=== PATIENT | female | born 1980 | race Two or more races ===

== ENCOUNTER 2024-03-22 13:20 | Emergency (ER) | payer MEDICAID, SELFPAY ==
[2024-03-22 13:41] VITALS: BP 139/97; PULSE 69; RESP 18; TEMP 36.8; O2SAT 96; BMI 30.3
--- NOTE | 2024-03-22 13:47 | XR_ITS ---
Examination: CT brain head without contrast. 2-D sagittal coronal reconstructions Date and time of exam:March 22, 2024 1503 hrs. Indications: Onset dizziness headache nausea vomiting beginning 3 days ago, right-sided headache episodes June 03, 2017 CTDI: vol (mGy):48.7 DLP: (mGycm):959 Technique: Multiple CT axial sections of the brain have been obtained, 5 mm slice thickness. Contrast has not been administered. 2-D sagittal, coronal reconstructions have been obtained Low dose protocols were performed. One or more of the following dose reduction techniques were used; automated exposure control, adjustment of the mA and/or KV according to patient size, use of iterative reconstruction technique. Findings: No significant ventricular enlargement. Intra-axial or extra-axial hemorrhage density is not seen. No mass effect or midline shift Basal cisterns are not remarkable. Fourth ventricle is midline. Cranial vault intact. Impression: Negative for acute hemorrhage, mass effect or midline shift
--- NOTE | 2024-03-22 13:47 | XR_ITS ---
Examination: PA lateral chest 2 views Technique: Upright PA lateral chest 2 views Exam date and time: March 22, 2024 at 1438 hrs. Indications: Shortness of breath beginning 2 days ago. Findings: Normal heart size Lungs are clear. The osseous structures are intact Impression: No active disease
--- NOTE | 2024-03-22 13:47 | PD.EDRME ---
Rapid Medical Screening Exam RME Arrival date/time: 03/22/24 13:20 43-year-old female presents emergency department complaints of dizziness and headache Chief Complaint: Headache Time Seen by Provider: 03/22/24 13:30 Vital signs: Vital Signs Temperature 98.3 F 03/22/24 13:41 Pulse Rate 69 03/22/24 13:41 Respiratory Rate 18 03/22/24 13:41 Blood Pressure 139/97 H 03/22/24 13:41 Pulse Oximetry (%) 96 03/22/24 13:41 Oxygen Delivery Method Room Air 03/22/24 13:41
[2024-03-22 14:31] LABS: Basophils % (Auto) 0 % (0-2.5); Eosinophils # (Auto) 0.1 Thou/mm3 (0.0-0.5); Eosinophils % (Auto) 2 % (0-10); Hematocrit 37.8 % (36.0-46.0); Hemoglobin 12.7 g/dL (12.0-16.0); Immature Granulocytes % (Auto) 0 % (0-0); Immature Granulocytes Auto 0.03 Thou/mm3 (0.00-0.00); Lymphocytes # (Auto) 2.5 Thou/mm3 (1.0-4.8); Lymphocytes % (Auto) 26 % (10-50); Mean Corpuscular HGB Conc 33.6 g/dl (31.0-37.0); Mean Corpuscular Hemoglobin 28.4 pg (25.0-35.0); Mean Corpuscular Volume 85 fL (80-100); Monocytes # (Auto) 0.5 Thou/mm3 (0.0-0.8); Monocytes % (Auto) 6 % (0-12); Neutrophils # (Auto) 6.3 Thou/mm3 (1.8-7.7); Neutrophils % (Auto) 66 % (37-80); Nucleated Red Blood Cell % 0 /100 WBC (0); Platelet Count 421 Thou/mm3 (140-440); RDW Standard Deviation 43.1 fL (36.4-46.3); Red Blood Count 4.47 Miln/mm3 (4.00-5.20); White Blood Count 9.5 Thou/mm3 (3.6-11.0)
[2024-03-22 14:46] LABS: HCG,Qualitative Serum Negative
[2024-03-22 14:47] LABS: Alanine Aminotransferase 26 U/L (10-49); Albumin, Serum 4.6 gm/dL (3.5-5.0); Albumin/Globulin Ratio 1.9 (1.2-2.2); Alkaline Phosphatase 80 U/L (46-116); Anion Gap 3 (7-16); Aspartate Amino Transferase 17 U/L (0-34); BUN/Creatinine Ratio 10 Ratio (12-20); Bilirubin,Total 0.3 mg/dL (0.3-1.2); Blood Urea Nitrogen 8 mg/dL (9-23); Carbon Dioxide 28.9 mMol/L (20.0-31.0); Chloride 105 mMol/L (98-107); Creatinine (Component) 0.8 mg/dL (0.6-1.3); Estimated Creatinine Clearance 91.9 mL/min (>60); Globulin 2.4 gm/dL (2.3-3.5); Glucose 115 mg/dL (74-106); Osmolality,Calculated 273 (275-295); Sodium 137 mMol/L (136-145); Troponin I < 0.020 ng/mL (0.0-0.045); eGFR > 60 See Note
[2024-03-22 17:06] VITALS: BP 137/86; PULSE 64; RESP 16; TEMP 36.8; O2SAT 100
--- NOTE | 2024-03-22 18:04 | PD.EDHA ---
ED Headache RME/HPI General Chief Complaint: Headache Stated Complaint: feeling like something hot leaking inside of me Time Seen by Provider: 03/22/24 13:30 Arrival date/time: 03/22/24 13:20 This is a 43-year-old female that comes in with complaints of headache and dizziness that started prior to arrival. Patient was seen at the clinic with primary doctor and was given a cocktail for her headache. Patient states that she did not feel better right away when they gave her the injection and felt like she had more head pressure after the injection. Patient felt that she got sick so she decided to come to the emergency room. Patient no longer complains of pain. Patient patient reports that she has had a lot of anxiety recently RME / HPI RME / HPI Narrative: 03/22/24 13:20 43-year-old female presents emergency department complaints of dizziness and headache Related Data Home Medications ?Medication ?Instructions ?Recorded ?Confirmed Vitamin * 1 tab PO QDAY #0 tabs 06/08/16 omeprazole 40 mg capsule,delayed 40 mg PO QDAY ##0 06/08/16 release Previous Rx's ?Medication ?Instructions ?Recorded tramadol 50 mg tablet (Ultram) 50 mg PO TID PRN ABDOMINAL PAIN 02/04/17 #14 tabs Allergies Allergy/AdvReac Type Severity Reaction Status Date / Time hydrocodone [From [place]] Allergy Vomiting Verified 02/11/21 13:32 Review of Systems Review of Systems Systems Reviewed: All systems reviewed, normal except as documented Past Medical History Social History SMOKING STATUS: Never smoker Travel History EBOLA RISK: No ED Exam General General appearance: Present alert and in no apparent distress Head Head exam: Present atraumatic Eye Eye exam: Present normal appearance, PERRL and EOMI ENT ENT exam: Present normal exam, normal oropharynx and mucous membranes moist Neck Neck exam: Present normal inspection, full ROM and trachea midline Chest Chest inspection: Present normal inspection and symmetric chest wall rise Respiratory Respiratory exam: Present normal lung sounds bilaterally Cardiovascular Cardiovascular exam: Present regular rate, normal rhythm and normal heart sounds Abdominal Exam Abdominal exam: Present soft Extremities Exam Extremities exam: Present normal inspection and full ROM Back Exam Back exam: Present normal inspection and full ROM Neurological Exam Neurological exam: Present alert, oriented X3 and CN II-XII intact Psychiatric Psychiatric exam: Present normal affect and normal mood Skin Skin exam: Present warm, dry, intact and normal color Course Quality Measures none Orders Category Date Time Status EKG (ED ONLY) *Do not use* NOW Care 03/22/24 13:[address] head/brain wo con Stat Exams 03/22/24 13:47 Completed EKG (ED Only) Stat Exams 03/22/24 13:47 Ordered XR chest 2V Stat Exams 03/22/24 13:47 Completed CBC Stat Lab 03/22/24 14:05 Completed Comprehensive Metabolic Panel Stat Lab 03/22/24 14:05 Completed HCG,Qualitative Serum Stat Lab 03/22/24 14:05 Completed Troponin I Stat Lab 03/22/24 14:05 Completed Vital Signs Vital signs: Vital Signs Temperature 98.3 F 03/22/24 13:41 Pulse Rate 69 03/22/24 13:41 Respiratory Rate 18 03/22/24 13:41 Blood Pressure 139/97 H 03/22/24 13:41 Pulse Oximetry (%) 96 03/22/24 13:41 Oxygen Delivery Method Room Air 03/22/24 13:41 Procedures -ED EKG Interpretation #1: Date of EK03/22/24 Time of EK:54 Rate: 60 Interpretation: Interpreted by me (sinus rhythm ) EKG Impression: No ectopy, Normal QRS and Normal intervals Headache MDM Narrative MDM Narrative:: This is a 43-year-old female that comes in with complaints of headache and dizziness that started prior to arrival. Patient was seen at the clinic with primary doctor and was given a cocktail for her headache. Patient states that she did not feel better right away when they gave her the injection and felt like she had more head pressure after the injection. Patient felt that she got sick so she decided to come to the emergency room. Patient no longer complains of pain. Patient patient reports that she has had a lot of anxiety recently chest x ray: Findings: Normal heart size Lungs are clear. The osseous structures are intact Impression: No active disease ct head: Findings: No significant ventricular enlargement. Intra-axial or extra-axial hemorrhage density is not seen. No mass effect or midline shift Basal cisterns are not remarkable. Fourth ventricle is midline. Cranial vault intact. Impression: Negative for acute hemorrhage, mass effect or midline shift Patient labs look unremarkable. Pt feels better. Pt thinks she felt sick initially after injection but now feels better. Pt feels comfortable going home. Patient data External records reviewed:: [facility] previous records Clinical information provided by:: patient Social determinants that could affect healthcare access:: none Patient has the following chronic illnesses:: none How is presenting disease/condition affected by chronic disease/condition?: no chronic disease Evaluation data The following diagnostics were reviewed and interpreted by me:: lab results, radiology exam(s) and EKG tracing(s) Lab and/or radiology exams considered but not ordered:: none Interpretation Summary: see note Medications / Prescriptions Medications or Prescriptions considered but not ordered:: none Medication administrations:: none Consultations Consultation(s) initiated? (list below): No Diagnosis Differential diagnosis headache: migraine, tension headache, subarachnoid hemorrhage, headache and other (anxiety ) Most likely diagnosis given after review of the tests above:: anxiety and headache Admission Indicated Admission indicated?: not indicated Admission Request Was there a request for admission?: No Disposition Plan Disposition Plan: Discharge Discharge Attestation Discharge Attestation: The patient and all family members were given an opportunity to ask questions and understood the discharge instructions. Discharge instructions specifically effects, indications for sooner follow up or return to the emergency department, and the expected course of current diagnosis. Patient condition: Stable Discharge Plan Plan Patient Disposition: HOME (Self Care) Patient condition on transfer: Stable Prescriptions/Referrals Prescriptions/Med Rec: No Action omeprazole 40 MG capsule,delayed release(DR/EC) 40 mg PO QDAY Qty: 0 Vitamin * 1 EACH tablet 1 tab PO QDAY Qty: 0 tramadol [Ultram] 50 MG tablet 50 mg PO TID PRN (Reason: ABDOMINAL PAIN) Qty: 14 0RF Rx Instructions: FOR PAIN, NOT TO EXCEED 8 TABS IN 24 HRS Referrals: Hermes Mendoza PA-C [Primary Care Provider] - In 1 week Problem List Clinical Impression: Anxiety, Headache Patient/Caregiver Discharge Instructions Education Materials: Self-Care for Headaches, ED Anxiety Reaction Additional Instructions: Follow up with primary provider in 1-2 days. Come back to ED if symptoms change or worsen Print Language: Bhutanese Stand Alone Forms: Kathrine Award Info., Patient Portal Info Letter Attestation Attestation The patient was seen by the midlevel practitioner. I, the co-signing physician, was present during the entire ER visit. While I did not physically examine the patient, I was available for consultation as needed.
== END 2024-03-22 18:30 | disposition home or self-care (01) ==
PROVIDERS: Nurse Practitioner Primary Care; Emergency Provider Emergency Medicine; PCP Physician Assistant
DX: F41.9 Anxiety disorder, unspecified (principal); R06.02 Shortness of breath; R42 Dizziness and giddiness; R51.9 Headache, unspecified; R11.2 Nausea with vomiting, unspecified; R94.31 Abnormal electrocardiogram [ECG] [EKG]
CPT/HCPCS: 36415; 70450; 71046; 80053; 84484; 84703; 85025; 93005; 99284

== ENCOUNTER 2024-03-26 11:30 | Outpatient (RCR) | payer MEDICAID, SELFPAY ==
--- NOTE | 2024-03-20 14:34 | PT.OIERPT ---
PT OP Initial Eval Patient Information Outpatient Physical Therapy Treatment Date: 03/20/24 Visit Reasons: Carpal tunnel right hand Medical Diagnosis: G56.01 M79.641 Treatment Dx #1: R hand weakness Treatment Dx #2: R hand pain Start of Care: 03/20/24 Date of Onset: 05/31/23 Smoking Status Smoking Status: Never smoker Initial Assessment Subjective: Pt is 43 yr old arabic speaking female s/p R CTR presents to therapy with c/o R hand pain and weakness and that she drops things. Pt reports she can make a full fist but the wrist and the arm hurt. 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 PMH: none reported Pt goal: more strength and less pain of R hand in order to work Objective: R wrist AROM: Strength: Flexion: 55 deg 4/5 Extension: 57 deg 4-/5 Global Compensation Analyst strength: 35 lbs, L: 60 lbs Thumb AROM: Extension: full Flexion: full Fist AROM: full Thumb to finger opposition: full Assessment: Pt presentation consistent with slow healing incision scar s/p R CTR. 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 Pt requires skilled therapy to improve strength and ROM of R hand and has good rehab potential. Short Term and Longterm Goals 1. Ind with HEP 2. 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 Pt will tolerate work duties x6 hrs with <3/10 R hand pain Treatment Plan ? 1. Manual therapy ? 2. Therex ? 3. Modalities as indicated, moist heat, ice, estim ? Frequency and Duration: 1-2x a week for 6 weeks Certification Dates: 03/20/24 to 06/18/24 Procedure Charges OP PT Eval Mod Complex 30 minutes: Yes
--- NOTE | 2024-03-26 13:07 | PT.ODAYNRPT ---
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 Objective: Please see flow sheet for ther ex list. Assessment: Performed scar mobilization per pt tolerance, no complaints minimal TTP. Plan: Continue with POC. Length of Time (minutes) of Treatment: 30 Minutes Procedure Charges Therapeutic Exercise 30 minutes: Yes
== END 2024-04-05 23:59 | disposition home or self-care (01) ==
LOC: CPTX 11:30
PROVIDERS: PCP Surgery; Referring Provider Surgery; Visit Provider Surgery
DX: M79.641 Pain in right hand (principal); R53.1 Weakness; Z98.890 Other specified postprocedural states
CPT/HCPCS: 97110; 97162

== ENCOUNTER 2024-04-15 09:30 | Outpatient (RCR) | payer MEDICAID, SELFPAY ==
--- NOTE | 2024-04-08 12:06 | PT.ODAYNRPT ---
PT Outpatient Daily Note OP Daily Note Outpatient Physical Therapy Treatment Date: 04/08/24 Visit Reasons: Carpal Tunnel Right hand Subjective: pt. reports pain L wrist but alleviates pain with ther-ex stretch Objective: see flowsheet for ther-ex MT x5 mins scar tissue mobilization Assessment: MT relieved discomfort from L wrist pain x5 mins reduces scar tissue tightness Plan: continue PT per POC Length of Time (minutes) of Treatment: 30 Minutes Procedure Charges Therapeutic Exercise 30 minutes: Yes
--- NOTE | 2024-04-15 12:02 | PT.ODAYNRPT ---
PT Outpatient Daily Note OP Daily Note Outpatient Physical Therapy Treatment Date: 04/15/24 Visit Reasons: Carpal Tunnel Right hand Subjective: pt. reports HEP increases strength in wrist Objective: see flowsheet for ther-ex STM x7 mins Assessment: less wrist pain with STM Plan: continue PT per POC Length of Time (minutes) of Treatment: 30 Minutes Procedure Charges Therapeutic Exercise 30 minutes: Yes
== END 2024-05-06 23:59 | disposition home or self-care (01) ==
LOC: CPTX 09:30
PROVIDERS: PCP Surgery; Referring Provider Surgery; Visit Provider Surgery
DX: M79.641 Pain in right hand (principal); R53.1 Weakness; Z98.890 Other specified postprocedural states
CPT/HCPCS: 97110